=== PATIENT | female | born 1950 | race African-American/Black ===

== ENCOUNTER 2020-08-20 21:16 | Inpatient (IN) | payer MEDICARE, MEDICAID ==
[~2020-08-20] VITALS: Ht 157.5 cm; Wt 97.7 kg
[2020-08-20] MEDS ORDERED: HYDROCHLOROTH12.5 M1 PO (21:30)
[2020-08-20] MEDS ORDERED: LEVO-T125 MCG PO (21:30)
[2020-08-20] MEDS ORDERED: OS-CAL500 MG PO (21:31)
[2020-08-20] MEDS ORDERED: PROTONIX40 MG PO (21:31)
[2020-08-20] MEDS ORDERED: TOPROL XL50 MG PO (21:31)
[2020-08-20] MEDS ORDERED: HYDROCODON-ACE1 EAC7 PO (21:32)
[2020-08-20 22:18] LABS: BASOPHILS 0.1 % (0-2); EOSINOPHILS 1.2 % (0-7); HEMOGLOBIN 11.9 g/dL (12-16); IMMATURE GRANULOCYTES 0.3 % (0-5); LYMPHOCYTE ABS# 2.67 10x3/uL (1.18-3.74); LYMPHOCYTES 25.6 % (15-50); MCH 29.8 pg (26.0-34.0); MCHC 33.1 g/dL (31.0-37.0); MEAN PLATELET VOLUME 10.2 fL (7.4-10.4); MONOCYTES 10.2 % (2-11); NEUTROPHIL ABS# 6.53 10x3/uL (1.56-6.13); NEUTROPHILS 62.6 % (40-80); PLATELET COUNT 240 10x3/uL (130-400); RDW 19.4 % (11.5-14.5); WBC 10.4 10x3/uL (4.8-10.8)
[2020-08-20 22:23] LABS: APTT 31.8 SECONDS (22.8-39.4); INR 1.22 (0.85-1.17); PROTIME 14.2 SECONDS (11.6-15.0)
[2020-08-20 22:25] LABS: CALC OSMOLALITY 278 mosm/kg (275-300); CALCIUM 8.4 mg/dL (8.5-10.1); CARBON DIOXIDE 25.9 mmol/L (21.0-32.0); CHLORIDE - SERUM 102 mmol/L (98-107); CREATININE - SERUM 0.6 mg/dL (0.6-1.3); GLUCOSE 143 mg/dL (74-106); SODIUM 140 mmol/L (136-145); UREA NITROGEN 6 mg/dL (7-18); eGFR NON AFRICAN AMERICAN > 90 mL/min (90-120)
[2020-08-20 22:45] LABS: ALBUMIN 3.4 g/dL (3.4-5.0); ALKALINE PHOSPHATASE 105 U/L (30-120); ALT (SGPT) 22 U/L (10-68); BILIRUBIN - TOTAL 0.48 mg/dL (0.2-1.3); CKMB 1.8 U/L (0.0-3.6); CREATINE KINASE 68 UL (21-215); MAGNESIUM - SERUM 1.5 mg/dL (1.8-2.4); PROTEIN - SERUM 7.3 g/dL (6.4-8.2); TROPONIN-I 0.055 ng/mL (0.000-0.060)
[2020-08-20 23:30] VITALS: BP 143/103
[2020-08-21] VITALS (8 sets, daily range): BP systolic 116–161; BP diastolic 74–96; Ht 157.5 cm; Wt 97.7 kg
--- NOTE | 2020-08-21 01:26 | NUR ---
WATER SOFTENER INSTALLER (JOSE) STATES PT REFUSED CT NECK STUDY.
--- NOTE | 2020-08-21 05:01 | NUR ---
EKG completed, sinus tachycardia rate 117, left anterior fascicular block, moderate voltage criteria for LVH. Hardcopy placed in chart.
--- NOTE | 2020-08-21 06:46 | NUR ---
Shift summary: Patient with dypnea on exertion. Some wheezing noted from mouth. Denies any needs.
--- NOTE | 2020-08-21 07:15 | NUR ---
SHIFT REPORT RECIEVED. PT SITTING ON SIDE OF BED. AUDIBLE WHEEZES. WILL MONITOR. BUMEX AT 10 ML/H TO RIGHT WRIST. CL IN REACH. NO NEEDS AT THIS TIME. WCTM
[2020-08-21 08:57] LABS: CALCIUM 7.9 mg/dL (8.5-10.1); CARBON DIOXIDE 29.5 mmol/L (21.0-32.0); CHLORIDE - SERUM 97 mmol/L (98-107); CHOL - HDL RATIO 2.8 ratio (2.3-4.1); CHOLESTEROL, TOTAL 193 mg/dL (0-200); CREATINE KINASE 67 UL (21-215); HDL CHOLESTEROL 69 mg/dL (32-96); LDL CHOLESTEROL 107 mg/dL (0-100); LDL-HDL RATIO 1.6 ratio (1.5-3.5); MAGNESIUM - SERUM 1.4 mg/dL (1.8-2.4); PHOSPHOROUS 3.7 mg/dL (2.5-4.9); POTASSIUM - SERUM 3.3 mmol/L (3.5-5.1); SODIUM 137 mmol/L (136-145); THYROID STIMULATING HORMONE 2.95 uIU/mL (0.36-3.74); TRIGLYCERIDE 89 mg/dL (30-200); TROPONIN-I 0.017 ng/mL (0.000-0.060); UREA NITROGEN 6 mg/dL (7-18); eGFR NON AFRICAN AMERICAN 75 mL/min (90-120)
[2020-08-21 09:00] LABS: CALC OSMOLALITY 276 mosm/kg (275-300); CREATININE - SERUM 0.8 mg/dL (0.6-1.3); GLUCOSE 194 mg/dL (74-106)
[2020-08-21 10:30] LABS: BASOPHILS 0.3 % (0-2); EOSINOPHILS 1.7 % (0-7); HEMATOCRIT 38.2 % (36.0-48.0); HEMOGLOBIN 12.6 g/dL (12-16); IMMATURE GRANULOCYTES 0.3 % (0-5); LYMPHOCYTE ABS# 2.41 10x3/uL (1.18-3.74); LYMPHOCYTES 21.1 % (15-50); MCH 29.7 pg (26.0-34.0); MCV 90.1 fL (80.0-100.0); MEAN PLATELET VOLUME 11.4 fL (7.4-10.4); MONOCYTES 12.7 % (2-11); NEUTROPHIL ABS# 7.32 10x3/uL (1.56-6.13); NEUTROPHILS 63.9 % (40-80); PLATELET COUNT 259 10x3/uL (130-400); RBC 4.24 10x6/uL (4.00-5.40); RDW 19.7 % (11.5-14.5); WBC 11.4 10x3/uL (4.8-10.8)
--- NOTE | 2020-08-21 10:44 | NUR ---
DAUGHTER SHARI IN ROOM. ASKS IF PT HAS RECIEVED HER MEDICINE FOR HER THYROID. I TOLD HER IT HASN'T BEEN RESTARTED YET BUT WILL CALL THE DR TO SEE IF WE CAN. THEY VERBALIZED UNDERSTANDING. WAS CALLED BACK TO ROOM BECAUSE HANDS WERE NUMB AND TINGLING. CALLED Patrica BARLOW APN TO GET ORDER TO [facility] AND MAKE AWARE OF NEW TINGLING AND NUMBNESS. CL IN REACH. PT REQUESTING PILLOWS. WCTM
[2020-08-21 11:44] LABS: CKMB 1.5 U/L (0.0-3.6); CREATINE KINASE 72 UL (21-215)
[2020-08-21 11:45] LABS: TROPONIN-I < 0.017 ng/mL (0.000-0.060)
--- NOTE | 2020-08-21 18:33 | NUR ---
PT STATES CHEST PAIN. STATES IT IS IN THE MIDDLE OF HER STERNUM. MORPHINE GIVEN PER EMAR. CHECK ON PT AND SHE STATES PAIN IS NOT THERE. AND THAT ITS THE PHLEGM THAT IS STUCK IN HER THROAT THAT IS BOTHERING HER NOW. ICE CREAM GIVEN TO EASE SORE THROAT. CL IN REACH. WCTM
--- NOTE | 2020-08-21 22:55 | NUR ---
pt c/o chest pain, not new, requeste pain med, nurse went to get pain med pt was in bathroom returned to bed started c/o sob, hard to breath placed on 2 L NC, O2 sat 98-100%. Pt repots she feels she has anxiety/panic attacks at times but does not take anything for these. Merlyn Landeros APN on unit assessed pt. Pt reported soem improvmenet after resting on side of bed with 2L NC
--- NOTE | 2020-08-22 00:52 | NUR ---
PT WITH 3RD "PANIC ATTACK" salvador SHEIKH NOTIFIED NEW ORDER FOR ATIVAN, ATIVAN GIVEN PER ORDER. PT RESTING QUIETLY O2 SAT 95-100% ON 2L NC. WILL CONTINUE TO MONITOR
--- NOTE | 2020-08-22 01:03 | NUR ---
RECIEVED REPORT ON PT AND ASSUMED CARE AT THIS TIME. PT APPEARS SLEEPING IN BED, RESP EVEN/UNLABORDED AND CALL LIGHT WITHIN REACH.
--- NOTE | 2020-08-22 02:08 | NUR ---
PT CONFUSED AT THIS TIME, BED ALARM PLACED UNDER PT. PT WITH EPISODES OF GASPING FOR AIR AND SP02 DECREASING TO LOW 80'S THEN SP02 WILL INCREASE BACK TO 95%-100%, RT AT BEDSIDE AND NURSE AND RT NT SUCTIONED PT WITH NO RESULTS. DIMAS PAGED AND RETURNED CALL, REPORTED SYMPTOMS TO DARÍO BHATT APRN AND STAT CHEST XRAY ORDERED, 25MG ONE TIME DOSE IVP BENADRYL ORDERED, 40MG SOLU-MEDROL IVP Q8H ORDERED, PULMONARY CONSULT FOR DECREASED SP02 AND [address] URENA CONSULTED FOR DYSPHAGIA, INSTRUCTED TO REPORT TO ONCOMING NURSE TO CALL CONSULT AFTER 0800 IN A.M. WILL CONT TO ASSESS.
[2020-08-22 07:01] LABS: CALC OSMOLALITY 273 mosm/kg (275-300); CALCIUM 7.3 mg/dL (8.5-10.1); CARBON DIOXIDE 30.9 mmol/L (21.0-32.0); CHLORIDE - SERUM 94 mmol/L (98-107); CREATININE - SERUM 0.8 mg/dL (0.6-1.3); GLUCOSE 174 mg/dL (74-106); MAGNESIUM - SERUM 1.7 mg/dL (1.8-2.4); POTASSIUM - SERUM 3.4 mmol/L (3.5-5.1); SODIUM 136 mmol/L (136-145); UREA NITROGEN 8 mg/dL (7-18); eGFR NON AFRICAN AMERICAN 75 mL/min (90-120)
[2020-08-22 07:11] LABS: BASOPHILS 0.1 % (0-2); EOSINOPHILS 0.3 % (0-7); HEMATOCRIT 37.9 % (36.0-48.0); HEMOGLOBIN 12.8 g/dL (12-16); IMMATURE GRANULOCYTES 0.3 % (0-5); LYMPHOCYTE ABS# 1.02 10x3/uL (1.18-3.74); LYMPHOCYTES 9.9 % (15-50); MCH 30.1 pg (26.0-34.0); MCHC 33.8 g/dL (31.0-37.0); MCV 89.2 fL (80.0-100.0); MEAN PLATELET VOLUME 10.9 fL (7.4-10.4); MONOCYTES 3.8 % (2-11); NEUTROPHIL ABS# 8.78 10x3/uL (1.56-6.13); NEUTROPHILS 85.6 % (40-80); PLATELET COUNT 277 10x3/uL (130-400); RBC 4.25 10x6/uL (4.00-5.40); WBC 10.3 10x3/uL (4.8-10.8)
[2020-08-22 07:30] VITALS: BP 128/64
--- NOTE | 2020-08-22 09:51 | MORECARE ---
CASE MANAGEMENT DISCHARGE SUMMARY PATIENT: ELLEN MEDRANO UNIT: [id number] ADM DATE: 08/20/20 AGE: 70 : 50 SEX: F [facility] AUTHOR: ROSEMARIE,DOC PHYSICIAN: REFERRING PHYSICIAN: BUSHRA SANCHEZ MD DATE OF SERVICE: 08/22/20 Case Management Discharge Planning Summary DCP REVIEW SUMMARY ANTICIPATED D/C DATE: EXPECTED LOS : CASE STATUS: DCP Initiated INITIAL REVIEW: 08/22/2020 INITIAL REVIEWER: Marlene Hawkins FINAL DISCHARGE DISPOSITION: : FINAL REVIEWER: FINAL REVIEW DATE: DCP Focus Questions & Answers QUESTION: ANSWER : PATIENT: ELLEN MEDRANO ENCOUNTER: [id number] MEDICAL RECORD#: [id number] ADMISSION DATE: 08/20/2020 DISCHARGE DATE: ATTENDING MD: BUSHRA EL : AGE: 70 MARITAL STATUS: U DC PLAN ID: [id number] FACILITY: [facility] PRINTED ON: 08/22/20 9:51 CT All edits/amendments must be made on the electronic document DICTATION DATE: 08/22/20950 MOLDER SWEEP: DM 08/22/20950 RPT#: [id number] DC DATE: STATUS: ADM IN [facility] [address] [place] [address] END OF REPORT
--- NOTE | 2020-08-22 10:02 | MORECARE ---
CASE MANAGEMENT DISCHARGE SUMMARY PATIENT: ELLEN MEDRANO UNIT: [id number] ADM DATE: 08/20/20 AGE: 70 : 50 SEX: F ROOM/BED: D.2107 AUTHOR: JAM HOUSTON PHYSICIAN: REFERRING PHYSICIAN: BUSHRA SANCHEZ MD DATE OF SERVICE: 08/22/20 Case Management Discharge Planning Summary COMMENTS ENTERED DATE: 08/22/20 9:58 CT COMMENT TYPE: Discharge Planning REVIEWER: Marlene Hawkins DC PLAN: Home ANTICIPATED DC NEEDS: No needs CM met with patient to complete initial dc planning assessment. CM educated patient on the CM role and verbal consent given by patient to complete assessment. CM verified patient's address, phone number, and emergency contact phone numbers. Her physical address is [address] [place] [address] in [facility]. The address on her face sheet is her daughter's. Patient lives with "a friend" and they "help each other out". At discharge patient plans to return and feels this is a safe discharge. She states her daughter sets up her pill box for her. States her PCP is Dr. Simon in [place]. CM discussed availability of home health, rehab services, and medical equipment. Patient denied known discharge needs at this time. Transportation provider at discharge will be her daughter. She has oxygen at home with portability that she uses at 2 liters NC prn. CM will continue to follow and will assist as needed with dc plans/needs. DCP REVIEW SUMMARY ANTICIPATED D/C DATE: EXPECTED LOS : CASE STATUS: DCP Initiated INITIAL REVIEW: 08/22/2020 INITIAL REVIEWER: Marlene Hawkins FINAL DISCHARGE DISPOSITION: : FINAL REVIEWER: FINAL REVIEW DATE: DCP Focus Questions & Answers DCP Evaluation QUESTION: ANSWER Patient and/or caregiver agree upon recommended discharge plan? : Yes Family / Caregiver's ability to cope with chronic illness: : a. Adequate (ability to meet patient's medical needs, ensures patient attends medical appts.) Patient's current cognitive status: : *Oriented to person, place, situation, time and present Patient's ability to cope with chronic illness : d. No chronic illness Patient gives permission to discuss discharge plans with: (name, relationship and number) : Sara Gold - R - [phone] Does the patient have the ability to pay for or attain post discharge needs / services? : Yes Functional screen assessment: : Basic needs can adequately be met by self Family / Caregiver's ability to cope with chronic illness: : a. Adequate (ability to meet patient's medical needs, ensures patient attends medical appts.) Physical Status: : Partial care dependence Equipment needed for post hospitalization: : None Living Arrangements: : Home with others Results of this evaluation have been discussed with: : Patient Results of this evaluation have been discussed with: : Family Patient with capacity for self-care or can be cared for in same environment as prior to hospitalization? : Yes Living arrangements comments: : States lives with a friend that assists her Baseline cognitive status: : *Oriented to person, place, situation, time and present Physical environment modification needed / anticipated for discharge: : No Preadmission facility can/cannot provide post hospital level of care needs: : Can - at same level of care as preadmission Medication Management: : Patient states can afford medications Pharmacy name(s): : [facility] PCP is Dr. Simon Does Patient have transportation to get home and to follow-up medical appointments when discharged from the hospital? : Yes Would patient like to participate in any Care Coordination programs (if applicable): : Not applicable Does the patient have electricity at home? : Yes Does the patient have running water in their house? : Yes Equipment in use: : Other Equipment in use: : Home Oxygen with Nasal Cannula Other Equipment comments: : Portable oxygen Mental health screen: : No mental health history Psychosocial status: : Independent adult (65+) Resources / Services in place: : None DCP Re-evaluation QUESTION: ANSWER Would patient like to participate in any Care Coordination programs (if applicable): : Not applicable PATIENT: ELLEN MEDRANO ENCOUNTER: [id number] MEDICAL RECORD#: [id number] ADMISSION DATE: 08/20/2020 DISCHARGE DATE: ATTENDING MD: BUSHRA EL : AGE: 70 MARITAL STATUS: U DC PLAN ID: [id number] FACILITY: [facility] PRINTED ON: 08/22/20 10:02 CT All edits/amendments must be made on the electronic document DICTATION DATE: 08/22/201001 MUD TANK OPERATOR: MADI 08/22/20 1002 RPT#: [id number] DC DATE: STATUS: ADM IN [facility] [address] [place] [address] END OF REPORT
[2020-08-22 11:00] VITALS: BP 112/69
[2020-08-22] MEDS ORDERED: PREDNISONE10 MG PO (11:50)
--- NOTE | 2020-08-22 12:34 | MORECARE ---
CASE MANAGEMENT DISCHARGE SUMMARY PATIENT: ELLEN MEDRANO UNIT: [id number] ADM DATE: 08/20/20 AGE: 70 : 50 SEX: F ROOM/BED: D.2107 AUTHOR: JAM HOUSTON PHYSICIAN: REFERRING PHYSICIAN: BUSHRA SANCHEZ MD DATE OF SERVICE: 08/22/20 Case Management Discharge Planning Summary COMMENTS ENTERED DATE: 08/22/20 9:58 CT COMMENT TYPE: Discharge Planning REVIEWER: Marlene Hawkins DC PLAN: Home ANTICIPATED DC NEEDS: No needs CM met with patient to complete initial dc planning assessment. CM educated patient on the CM role and verbal consent given by patient to complete assessment. CM verified patient's address, phone number, and emergency contact phone numbers. Her physical address is [address] [place] [address] in [facility]. The address on her face sheet is her daughter's. Patient lives with "a friend" and they "help each other out". At discharge patient plans to return and feels this is a safe discharge. She states her daughter sets up her pill box for her. States her PCP is Dr. Simon in [place]. CM discussed availability of home health, rehab services, and medical equipment. Patient denied known discharge needs at this time. Transportation provider at discharge will be her daughter. She has oxygen at home with portability that she uses at 2 liters NC prn. CM will continue to follow and will assist as needed with dc plans/needs. DCP REVIEW SUMMARY ANTICIPATED D/C DATE: EXPECTED LOS : CASE STATUS: DCP Initiated INITIAL REVIEW: 08/22/2020 INITIAL REVIEWER: Marlene Hawkins FINAL DISCHARGE DISPOSITION: : FINAL REVIEWER: FINAL REVIEW DATE: DCP Focus Questions & Answers DCP Evaluation QUESTION: ANSWER Patient and/or caregiver agree upon recommended discharge plan? : Yes Family / Caregiver's ability to cope with chronic illness: : a. Adequate (ability to meet patient's medical needs, ensures patient attends medical appts.) Patient's current cognitive status: : *Oriented to person, place, situation, time and present Patient's ability to cope with chronic illness : d. No chronic illness Patient gives permission to discuss discharge plans with: (name, relationship and number) : Sara Gold - R - [phone] Does the patient have the ability to pay for or attain post discharge needs / services? : Yes Functional screen assessment: : Basic needs can adequately be met by self Family / Caregiver's ability to cope with chronic illness: : a. Adequate (ability to meet patient's medical needs, ensures patient attends medical appts.) Physical Status: : Partial care dependence Equipment needed for post hospitalization: : None Living Arrangements: : Home with others Results of this evaluation have been discussed with: : Patient Results of this evaluation have been discussed with: : Family Patient with capacity for self-care or can be cared for in same environment as prior to hospitalization? : Yes Living arrangements comments: : States lives with a friend that assists her Baseline cognitive status: : *Oriented to person, place, situation, time and present Physical environment modification needed / anticipated for discharge: : No Preadmission facility can/cannot provide post hospital level of care needs: : Can - at same level of care as preadmission Medication Management: : Patient states can afford medications Pharmacy name(s): : [facility] PCP is Dr. Simon Does Patient have transportation to get home and to follow-up medical appointments when discharged from the hospital? : Yes Would patient like to participate in any Care Coordination programs (if applicable): : Not applicable Does the patient have electricity at home? : Yes Does the patient have running water in their house? : Yes Equipment in use: : Other Equipment in use: : Home Oxygen with Nasal Cannula Other Equipment comments: : Portable oxygen Mental health screen: : No mental health history Psychosocial status: : Independent adult (65+) Resources / Services in place: : None DCP Re-evaluation QUESTION: ANSWER Would patient like to participate in any Care Coordination programs (if applicable): : Not applicable PATIENT: ELLEN MEDRANO ENCOUNTER: [id number] MEDICAL RECORD#: [id number] ADMISSION DATE: 08/20/2020 DISCHARGE DATE: ATTENDING MD: BUSHRA EL : AGE: 70 MARITAL STATUS: U DC PLAN ID: [id number] FACILITY: [facility] PRINTED ON: 08/22/20 12:34 CT All edits/amendments must be made on the electronic document DICTATION DATE: 08/22/20 1234 PRODUCT MARKETING ANALYST: MADI 08/22/20 1234 RPT#: [id number] DC DATE: STATUS: ADM IN [facility] [address] [facility] [place] [address] END OF REPORT
[2020-08-22 20:00] VITALS: BP 152/83
--- NOTE | 2020-08-22 20:06 | NUR ---
pt c/o right CP reports she feels this is indigestion that she has at home, prn morphine given pt reports thsi does help somwhat. reports last regular bm was 2 days ago and she does usually go daily, she reports not passing flatus as well today, would like something for bm, gas, and indigestion. pt reports she takes 2 protonix daily at home instead of 1. bp 151/87 hr 93 tele with NSR 97 paged fitness services manager conference services coordinator will contiue to monitor
--- NOTE | 2020-08-22 20:56 | NUR ---
PT REPORTS KNOT TO NECK, SMALL DIME SIZED, SOFT MOVEABLE SWOLLEN AREA NOTED TO JUST ABOVE THYROID SURGERY INCISION PT REPORTS SHE DID NOT FEEL THIS KNOT THERE YESTERDAY. PAGED SOFTWARE TEST MANAGER LINE APPLIANCE ASSEMBLER TO NOTIFY
--- NOTE | 2020-08-22 22:19 | NUR ---
MONSERRAT PROVIDED TO PT SHE REPORTS SPUTUM "PHLEGM" IN HER THROAT. SCANT CLEAR SPUTUM NOTED TO MONSERRAT NO OBVIOUS PHLEGM OR SPUTUM
[2020-08-23] VITALS: BP 187/97
[2020-08-23 04:00] VITALS: BP 176/91
[2020-08-23 04:44] LABS: BASOPHILS 0 % (0-2); EOSINOPHILS 0 % (0-7); HEMATOCRIT 35.8 % (36.0-48.0); HEMOGLOBIN 12.1 g/dL (12-16); IMMATURE GRANULOCYTES 0.3 % (0-5); LYMPHOCYTE ABS# 1.41 10x3/uL (1.18-3.74); LYMPHOCYTES 14.8 % (15-50); MCHC 33.8 g/dL (31.0-37.0); MCV 88.6 fL (80.0-100.0); MEAN PLATELET VOLUME 10.4 fL (7.4-10.4); MONOCYTES 8.7 % (2-11); NEUTROPHIL ABS# 7.23 10x3/uL (1.56-6.13); NEUTROPHILS 76.2 % (40-80); PLATELET COUNT 289 10x3/uL (130-400); RBC 4.04 10x6/uL (4.00-5.40); RDW 19.5 % (11.5-14.5); WBC 9.5 10x3/uL (4.8-10.8)
[2020-08-23 05:07] LABS: CALC OSMOLALITY 269 mosm/kg (275-300); CARBON DIOXIDE 30.7 mmol/L (21.0-32.0); CHLORIDE - SERUM 93 mmol/L (98-107); CREATININE - SERUM 0.8 mg/dL (0.6-1.3); GLUCOSE 198 mg/dL (74-106); MAGNESIUM - SERUM 1.6 mg/dL (1.8-2.4); PHOSPHOROUS 3.8 mg/dL (2.5-4.9); POTASSIUM - SERUM 3.5 mmol/L (3.5-5.1); SODIUM 133 mmol/L (136-145); UREA NITROGEN 8 mg/dL (7-18); eGFR NON AFRICAN AMERICAN 75 mL/min (90-120)
[2020-08-23 08:35] VITALS: BP 138/90
[2020-08-23 11:46] VITALS: BP 150/83
[2020-08-23 16:25] VITALS: BP 134/91
--- NOTE | 2020-08-23 18:50 | NUR ---
PT AWAKE, ALERT AMBULATING IN ROOM. APPEARS MORE AWAKE, CALM THIS EVENING THAN LAST EVENING. DENIES ANY ISSUES WILL CONTINUE TO MONTIOR
[2020-08-23 21:26] VITALS: BP 147/86
[2020-08-24] VITALS: BP 164/79
[2020-08-24 04:00] VITALS: BP 156/84
[2020-08-24 06:24] LABS: CALC OSMOLALITY 275 mosm/kg (275-300); CALCIUM 7.2 mg/dL (8.5-10.1); CARBON DIOXIDE 30.7 mmol/L (21.0-32.0); CHLORIDE - SERUM 97 mmol/L (98-107); CREATININE - SERUM 0.7 mg/dL (0.6-1.3); GLUCOSE 185 mg/dL (74-106); MAGNESIUM - SERUM 1.8 mg/dL (1.8-2.4); POTASSIUM - SERUM 3.1 mmol/L (3.5-5.1); SODIUM 136 mmol/L (136-145); UREA NITROGEN 10 mg/dL (7-18); eGFR NON AFRICAN AMERICAN 88 mL/min (90-120)
[2020-08-24 06:27] LABS: BASOPHILS 0 % (0-2); EOSINOPHILS 0 % (0-7); HEMOGLOBIN 11.2 g/dL (12-16); IMMATURE GRANULOCYTES 0.5 % (0-5); LYMPHOCYTE ABS# 0.87 10x3/uL (1.18-3.74); MCH 29.4 pg (26.0-34.0); MCHC 32.9 g/dL (31.0-37.0); MCV 89.2 fL (80.0-100.0); MEAN PLATELET VOLUME 11.2 fL (7.4-10.4); MONOCYTES 10.2 % (2-11); NEUTROPHIL ABS# 6.91 10x3/uL (1.56-6.13); NEUTROPHILS 79.3 % (40-80); PLATELET COUNT 269 10x3/uL (130-400); RBC 3.81 10x6/uL (4.00-5.40); RDW 19.8 % (11.5-14.5); WBC 8.7 10x3/uL (4.8-10.8)
[2020-08-24 07:00] VITALS: BP 133/67
--- NOTE | 2020-08-24 07:30 | NUR ---
PT ASSESMENT COMPLETED. BREATHING EASILY. NO WHEEZING OR STRIDOR. HAD BM THIS MORNING FINALLY AND PT REFUSED MIRALAX. NO EDEMA. DENIES PAIN OR SOB. A & O X4. WALKING IN ROOM AND GOING TO THE BATHROOM INDEPENDENTLY.
[2020-08-24 11:30] VITALS: BP 143/81
--- NOTE | 2020-08-24 11:48 | NUR ---
DISCHARGE INSTRUCTIONS PROVIDED TO PATIENT AND PATIENT'S DAUGHTER. VERBALIZED UNDERSTANDING. TRANSPORTED TO VEHICLE VIA WHEELCHAIR. IV REMOVED.
--- NOTE | 2020-08-24 20:05 | MORECARE ---
CASE MANAGEMENT DISCHARGE SUMMARY PATIENT: ELLEN MEDRANO UNIT: [id number] ADM DATE: 08/20/20 AGE: 70 : 50 SEX: F ROOM/BED: D.2107 AUTHOR: JAM HOUSTON PHYSICIAN: REFERRING PHYSICIAN: BUSHRA SANHCEZ MD DATE OF SERVICE: 08/24/20 Case Management Discharge Planning Summary COMMENTS ENTERED DATE: 08/22/20 9:58 CT COMMENT TYPE: Discharge Planning REVIEWER: Marlene Hawkins DC PLAN: Home ANTICIPATED DC NEEDS: No needs CM met with patient to complete initial dc planning assessment. CM educated patient on the CM role and verbal consent given by patient to complete assessment. CM verified patient's address, phone number, and emergency contact phone numbers. Her physical address is [address] [place] [address] in [facility]. The address on her face sheet is her daughter's. Patient lives with "a friend" and they "help each other out". At discharge patient plans to return and feels this is a safe discharge. She states her daughter sets up her pill box for her. States her PCP is Dr. Simon in [place]. CM discussed availability of home health, rehab services, and medical equipment. Patient denied known discharge needs at this time. Transportation provider at discharge will be her daughter. She has oxygen at home with portability that she uses at 2 liters NC prn. CM will continue to follow and will assist as needed with dc plans/needs. DCP REVIEW SUMMARY ANTICIPATED D/C DATE: EXPECTED LOS : CASE STATUS: DCP Initiated INITIAL REVIEW: 08/22/2020 INITIAL REVIEWER: Marlene Hawkins FINAL DISCHARGE DISPOSITION: : FINAL REVIEWER: FINAL REVIEW DATE: DCP Focus Questions & Answers DCP Evaluation QUESTION: ANSWER Patient and/or caregiver agree upon recommended discharge plan? : Yes Family / Caregiver's ability to cope with chronic illness: : a. Adequate (ability to meet patient's medical needs, ensures patient attends medical appts.) Patient's current cognitive status: : *Oriented to person, place, situation, time and present Patient's ability to cope with chronic illness : d. No chronic illness Patient gives permission to discuss discharge plans with: (name, relationship and number) : Sara Gold - R - [phone] Does the patient have the ability to pay for or attain post discharge needs / services? : Yes Functional screen assessment: : Basic needs can adequately be met by self Family / Caregiver's ability to cope with chronic illness: : a. Adequate (ability to meet patient's medical needs, ensures patient attends medical appts.) Physical Status: : Partial care dependence Equipment needed for post hospitalization: : None Living Arrangements: : Home with others Results of this evaluation have been discussed with: : Patient Results of this evaluation have been discussed with: : Family Patient with capacity for self-care or can be cared for in same environment as prior to hospitalization? : Yes Living arrangements comments: : States lives with a friend that assists her Baseline cognitive status: : *Oriented to person, place, situation, time and present Physical environment modification needed / anticipated for discharge: : No Preadmission facility can/cannot provide post hospital level of care needs: : Can - at same level of care as preadmission Medication Management: : Patient states can afford medications Pharmacy name(s): : [facility] PCP is Dr. Simon Does Patient have transportation to get home and to follow-up medical appointments when discharged from the hospital? : Yes Would patient like to participate in any Care Coordination programs (if applicable): : Not applicable Does the patient have electricity at home? : Yes Does the patient have running water in their house? : Yes Equipment in use: : Other Equipment in use: : Home Oxygen with Nasal Cannula Other Equipment comments: : Portable oxygen Mental health screen: : No mental health history Psychosocial status: : Independent adult (65+) Resources / Services in place: : None DCP Re-evaluation QUESTION: ANSWER Would patient like to participate in any Care Coordination programs (if applicable): : Not applicable PATIENT: ELLEN MEDRANO ENCOUNTER: [id number] MEDICAL RECORD#: [id number] ADMISSION DATE: 08/20/2020 DISCHARGE DATE: 08/24/2020 ATTENDING MD: BUSHRA EL : AGE: 70 MARITAL STATUS: U DC PLAN ID: [id number] FACILITY: [facility] PRINTED ON: 08/24/20 20:05 CT All edits/amendments must be made on the electronic document DICTATION DATE: 08/24/202004 LAWYERS: MADI 08/24/202004 RPT#: [id number] DC DATE:08/24/20 STATUS: DIS IN [facility] [address] [place] [address] END OF REPORT
== END 2020-08-24 11:50 | disposition home or self-care (01) | DRG 291 ==
LOC: D.ER 21:16 → D.M2 23:51
PROVIDERS: Emergency Medicine; ADMIT Emergency Medicine; ATTEND Emergency Medicine
DX: I11.0 Hypertensive heart disease with heart failure (principal); I50.21 Acute systolic (congestive) heart failure; J98.11 Atelectasis; E87.6 Hypokalemia; E83.42 Hypomagnesemia; E78.5 Hyperlipidemia, unspecified; M19.90 Unspecified osteoarthritis, unspecified site; R00.0 Tachycardia, unspecified; J43.9 Emphysema, unspecified; E66.01 Morbid (severe) obesity due to excess calories; Z68.39 Body mass index [BMI] 39.0-39.9, adult; F17.200 Nicotine dependence, unspecified, uncomplicated; E03.9 Hypothyroidism, unspecified